=== PATIENT | male | born 1975 | race Caucasian/White ===

== ENCOUNTER 2017-07-19 09:45 | Emergency (ER) | payer OTHER ==
[~2017-07-19] VITALS: Ht 157.5 cm; Wt 75.3 kg
--- NOTE | ~2017-07-19 | EKG ---
[facility] [address] [place] [address] ELECTROCARDIOGRAM REPORT Name: REHANALEJO Room #: DEP Abena#: [id number] Admission: 07/19/17 Attend Phys: Discharge: 07/19/17 Date of : 79 Report #: [id number] THIS REPORT FOR: //name// [facility] ED Test Date: 2017-07-19 Test Time: 10:46:10 Pat Name: ALEJO VAN Department: Room: Gender: Venue Manager: [facility] : 1975 Requested By: Jennifer Chung Order Number: [id number] MD: Yung Wong Measurements Intervals [place] Rate: 88 P: 16 CA: 154 QRS: -14 QRSD: 105 T: 14 QT: 360 QTc: 436 Interpretive Statements Sinus rhythm ST elev, probable normal early repol pattern No previous ECG available for comparison Electronically Signed On 07-19-2017 15:16:29 CUSTOM DECORATING CONSULTANT by Ynug Wong [email or web address] <ELECTRONICALLY SIGNED> By: Yung Wong MD 07/19/17 1516 [id number] [id number] MD GEORGE Spears
[2017-07-19 10:28] LABS: ABSOLUTE NEUTROPHILS 8.3 thou/uL (1.4-8.2); BASOPHILS 0.7 % (0.0-2.0); EOSINOPHILS 0.8 % (0.0-3.0); HEMATOCRIT 44.7 % (42.0-52.0); HEMOGLOBIN 15.6 gm/dL (14.0-18.0); LYMPHOCYTES 19.9 % (24.0-44.0); MCH 29.6 pg (26.0-34.0); MCHC 34.9 g/dL (28.0-37.0); MCV 84.8 fL (80.0-100.0); MONOCYTES 11.3 % (1.0-8.0); PLATELET COUNT 257 thou/uL (150-400); POLYS 67.3 % (36.0-66.0); RBC 5.27 mil/uL (4.50-6.00); RDW 12.3 % (10.5-14.5); WBC 12.3 thou/uL (4.0-11.0)
[2017-07-19] MEDS ORDERED: TESSALON PERLE100 MG PO ×2 (10:35→10:56)
[2017-07-19 10:37] LABS: ANION GAP 9 mmol/L (7-16); BUN 13 mg/dL (7-18); CALCIUM 9.1 mg/dL (8.5-10.1); CHLORIDE 100 mmol/L (98-107); CO2 26 mmol/L (21-32); CREATININE 0.8 mg/dL (0.7-1.3); GLUCOSE 103 mg/dL (74-106); POTASSIUM 3.6 mmol/L (3.5-5.1); SODIUM 135 mmol/L (136-145)
[2017-07-19 10:45] LABS: TROPONIN-I < 0.04 ng/mL (<0.06)
== END 2017-07-19 11:10 | disposition home or self-care (01) ==
LOC: ER 09:45
PROVIDERS: Emergency Medicine
DX: J06.9 Acute upper respiratory infection, unspecified (principal); R07.89 Other chest pain